=== PATIENT | female | born 1965 | race Hispanic/Latino ===

== ENCOUNTER 2025-05-16 11:44 | Emergency (ER) | payer OTHER ==
[~2025-05-16] VITALS: Ht 154.9 cm; Wt 56.7 kg
--- NOTE | 2025-05-16 12:24 | ERN ---
General Chief Complaint: Low Back Pain/Injury Stated Complaint: BACK Time Seen by MD: 11:47 Time Seen by Midlevel: 11:47 Source: patient History of Present Illness Initial Comments The patient is a 60-year-old female with a past medical history of chronic back pain presenting to the emergency department with left-sided lower back pain that started this morning. The patient reports having a history of multiple back surgeries. She recently moved from [place] due to the cold weather exacerbating her lower back pain. Yesterday she admits to going to a water aerobics class and believes she may have strained her lower back. The pain starts to the left lower back region and radiates down to her left leg. Denies any urinary/bowel incontinence. Denies any focal weakness. Denies any numbness or tingling. She states the only medications that normally help with her pain is Dilaudid or fentanyl. She has been previously seen by a pain management doctor back in [place] but has not been able to establish a mural painter at this time. Allergies: Coded Allergies: NSAIDS (Non-Steroidal Anti-Inflamma (Unverified Allergy, Unknown, 05/16/25) Penicillins (Unverified Allergy, Unknown, 05/16/25) aspirin (Unverified Allergy, Unknown, 05/16/25) morphine (Unverified Adverse Reaction, Unknown, 05/16/25) ITCHING Past Medical History Past Medical History: No Pertinent History Past Surgical History: Tonsillectomy, CABG, Other Surgical History Other: BACK SX ROS Dictation CONSTITUTIONAL: Negative except for HPI HEAD/FACE: Negative except for HPI EENT: Negative except for HPI RESPIRATORY: Negative except for HPI GASTROINTESTINAL/ABDOMINAL: Negative except for HPI GENITOURINARY: Negative except for HPI MUSCULOSKELETAL: Negative except for HPI INTEGUMENTARY: Negative except for HPI NEUROLOGICAL/PSYCH: Negative except for HPI HEMATOLOGIC/LYMPHATIC: Negative except for HPI All Systems Negative, Except as noted above. 13 point review of systems assessed and all negative except for above. Physical Exam Physical Exam Dictation Vital Signs reviewed General Appearance: Alert, oriented x 3, no acute distress, well developed, nourished. Head and Face: non-traumatic. Eyes: PERRL, pink conjunctivas, eyelid no trauma, anterior chamber with arcus senilis. Ears: Pinnas intact and no signs of trauma or erythema ear canals clear and no discharge TM no erythema Nose: No discharge, no bleeding. Oropharynx: Mouth normal, tongue pink, pharynx clear,no erythema, tonsils no exudates, no abscesses noted, mucous membrane moist Neck: Supple, non-tender, no thyromegaly, no masses, no JVD, no bruits Breast:Deferred Chest:No tenderness, no crepitus, no paradoxical movement, no retractions Lungs:Clear, well-ventilated, symmetric, no rales, no wheezing, no rhonchi, no stridor, good breath sounds bilaterally Heart: Regular rate, regular rhythm, no murmur, no gallops Vascular: no peripheral edema, Abdomen: Soft, positive bowel sounds, nondistended, no guarding, nontender, no rebound, no masses no hepatomegaly, no splenomegaly, no Hart's sign, no hernias. Rectal: Deferred Genital: Deferred Neurological: Normal speech, motor function intact, sensory function intact Musculoskeletal: Neck nontender, full range of motion, there is reproducible tenderness to the left paraspinal region of the lumbar area, no midline tenderness Extremities: nontender, full range of motion Skin: Color pink, dry, no turgor, no rash, no lacerations, no abrasions, no contusions. Lymphatic: Deferred MDM MDM: Differential diagnosis: Lumbar strain, sciatica, chronic back pain There are no social concerns with this patient. Prescription drug management Prescriptions will include: None Medical management and examination interpretation discussions were had by me with other qualified healthcare professionals as indicated for the patient's car e. ED Course Orders Procedure Category Date Status Time Hydromorphone 1 Mg PHA 05/16/25 Complete Inj (Dilaudid 1mg Inj 12:00 Orphenadrine Citrate PHA 05/16/25 Complete (Norflex) 12:00 Current Medications Medications (Trade) Dose Ordered Sig/Asad Route PRN Reason Start Time Stop Time Status Last Admin Dose Admin Hydromorphone HCl (DiLAUDid 1MG INJ) 1 mg ONCE ONCE IM 05/16/25 12:00 05/16/25 12:02 DC Orphenadrine Citrate (Norflex) 60 mg ONCE ONCE IM 05/16/25 12:00 05/16/25 12:02 DC Vital Signs Date Time Temp Pulse Resp B/P (MAP) Pulse Ox O2 Delivery O2 Flow Rate FiO2 05/16/25 11:47 98.1 74 16 143/92 97 Room Air 0 DX & DISP Disposition: Discharge Departure Impression: Primary Impression: Lumbar strain Condition: Stable Additional Instructions: Based on your physical examination your pain appears to be musculoskeletal in nature. You were given Dilaudid and Norflex in the emergency department. You will need to follow up with your primary care doctor for further evaluation and possible referral to mural painter. Time of Disposition: 12:23 I have reviewed the case, and I agree with, Diagnosis and Plan I performed the substantive portion of the visit. I have reviewed and personally made and approve the management plan that is documented in the note by myself or the MARILIN. I acknowledge for responsibility for the patient's management plan. JAG VAZQUEZ May 16, 2025 12:24
[2025-05-16 13:25] VITALS: BP 144/59; PULSE 77; RESP 20; TEMP 97.8; O2SAT 98
[2025-05-16] MEDS: ORPHENADRINE 60MG/2ML IM ONE (13:27)
== END 2025-05-16 13:27 | disposition home or self-care (01) ==
LOC: EDH 11:44
DX: S39.012A Strain of muscle, fascia and tendon of lower back, initial encounter (principal); Z88.0 Allergy status to penicillin; Z88.5 Allergy status to narcotic agent; Z88.6 Allergy status to analgesic agent; Z90.89 Acquired absence of other organs; Z95.1 Presence of aortocoronary bypass graft; X58.XXXA Exposure to other specified factors, initial encounter; Y93.89 Activity, other specified; Y92.89 Other specified places as the place of occurrence of the external cause; Y99.8 Other external cause status
CPT/HCPCS: 99284; 96372 ×2; J1171; J2360